=== PATIENT | female | born 1990 | race Caucasian/White ===

== ENCOUNTER 2025-07-28 09:12 | Emergency (ER) | payer MEDICAID ==
[~2025-07-28] VITALS: Ht 162.6 cm; Wt 65.9 kg
[2025-07-28 09:13] VITALS: TEMP 96.8
--- NOTE | 2025-07-28 09:31 | Physician Documentation ---
History of Present Illness ~ Chief Complaint: Back Pain Stated Complaint: BACK PAIN Time Seen by MD: 09:23 HPI Otherwise healthy 34-year-old female who presents to the emergency department for evaluation of bilateral lower back pain with mild radicular symptoms. Reports injury happened two months ago while working out. He has had waxing and waning symptoms has been unresolved. Initially sought urgent care has had no imaging. No prior history of the same. No loss of bowel or bladder. No saddle paresthesias. Noted antalgic gait. Medication Reconciliation Allergies: Coded Allergies: No Known Allergies (Unverified , 07/28/25) Scheduled Ibuprofen* (Motrin*), 1 TAB PO Q8H Prednisone* (Prednisone*), 2 TAB PO DAILY Tizanidine Hcl (Zanaflex), 1 TAB PO Q8H Review of Systems All Other Systems at this time: Reviewed and Negative Constitutional: Reports: see HPI; Denies: fever Physical Exam Physical Exam Vital Signs: RN Vital Signs have been reviewed: Yes, Temperature: 96.8, Source: Temporal, Heart Rate: 88, Respiratory Rate: 20, BP: 110/70, Pulse Oximetry: 99, Weight: 65.910 Oxygen Flow Rate: 0 General Appearance: alert, WD/WN, moderate distress EENT: PERRL/EOMI Neck: non-tender Respiratory: lungs clear Chest: accessory muscle use Cardiovascular: normal peripheral pulses Gastrointestinal: normal palpation Extremities: pain with movement, tenderness, other (Bilateral paraspinous lumbar discomfort) Neurologic: oriented x4, pad tufter II-XII nml as tested Psychiatric: normal mood/affect Skin: normal color, warm/dry Progress Results/Orders Results/Orders Orders - JAKOB ANGELES Lumbar Spine Limited (07/28/25 ) Completed Orders - JAKOB ANGELES Diazepam Tablet (Valium Tablet) (07/28/25 09:30) Ketorolac Trometh 15mg/Ml Vial (Toradol (07/28/25 09:30) Prednisone Tablet (Prednisone Tablet) (07/28/25 09:30) Lumbar Spine Limited (07/28/25 ) Medications Received in ER Medications (Trade) Dose Ordered Sig/Daysi Route PRN Reason Start Time Stop Time Status Last Admin Dose Admin (Valium tablet) 10 mg ONCE ONCE PO 07/28/25 09:30 07/28/25 09:35 DC 07/28/25 09:46 10 MG (Toradol injection) 15 mg ONCE ONCE IM 07/28/25 09:30 07/28/25 09:35 DC 07/28/25 09:47 15 MG (predniSONE tablet) 40 mg ONCE ONCE PO 07/28/25 09:30 07/28/25 09:35 DC 07/28/25 09:45 40 MG Vital Signs 07/28/25 07/28/25 07/28/25 07/28/25 09:13 09:27 09:27 09:46 Temp 96.8 Pulse 88 76 Resp 20 18 16 18 B/P (MAP) 110/70 103/72 (82) Pulse Ox 99 99 O2 Flow Rate 0 0 07/28/25 07/28/25 09:47 10:17 Resp 19 16 Medical Decision Making Additional information obtaine: N/A Findings Examination history warrants x-ray imaging to evaluate for pathologies such as spondylolysis, spondylolisthesis or other unforeseen etiologies. For abortive pain management patient will receive Toradol, Valium p.o. and prednisone burst. She will be reassessed. Presents grossly neurologically intact without focal neuro deficits. Patient reports moderate relief with the additional therapy. X-ray imaging reviewed by and reported by radiologist. There is L5-S1 facet arthropathy that is likely causing the patient's discomfort. She will be discharged without clinical suspicion for cauda equina syndrome, diskitis or epidural abscess area she will be asked to continue with prednisone burst for five days, tizanidine muscle relaxant ibuprofen. Safely discharged grossly neur ologically intact without focal neuro deficits. Differential Dx:Considerations: Musculoskeletal pain, Other (Epidural abscess, diskitis, cauda equina, spondylolisthesis, spondylolysis) Departure Disposition: HOME / SELF CARE / HOMELESS Impression: Primary Impression: Low back pain Qualified Codes: M54.42 - Lumbago with sciatica, left side; M54.41 - Lumbago with sciatica, right side Condition: Improved Discharge Instructions: Acute Back Pain, Adult Additional Instructions: Please begin medications as directed. Please advance her activity slowly and follow up with the primary care physician for consideration of physical therapy referral. Please return to the emergency department if symptoms worsen. Thank you for visiting [facility]. Referrals: NO PRIMARY CARE PROVIDER (PCP) Prescriptions Ibuprofen* (Motrin*) 400 Mg Tablet 1 TAB PO Q8H for pain or fever for 10 Days, #30 TAB Prov: JAKOB ANGELES 07/28/25 Prednisone* (Prednisone*) 20 Mg Tablet 2 TAB PO DAILY, #10 TAB Prov: JAKOB ANGELES 07/28/25 Tizanidine Hcl (ZANAFLEX) 4 Mg Tablet 1 TAB PO Q8H for 30 Days, #30 TAB 0 Refills Prov: JAKOB ANGELES 07/28/25 Education Educated: Patient Educated regarding: diagnosis, treatment, prognosis, need for follow up Signature Jemima Signature: . Attestation: . JAKOB ANGELES Jul 28, 2025 09:31
[2025-07-28] MEDS: ketorolac trometh 15mg/ml vial 15 MG/ML ML IM ONE (09:47)
--- NOTE | 2025-07-28 10:06 | RADIOLOGY REPORT ---
INDICATION: LB Radicular pain x 2 months COMPARISON: None TECHNIQUE: 3 views of the lumbar spine were obtained. FINDINGS: The lumbar vertebral alignment is normal. There is leftward deviation of the lumbar spine measuring L2-3. The intervertebral disc spaces are well-maintained. There is facet arthropathy at L4-L5 and L5-S1. No acute fracture, vertebral compression deformity or aggressive osseous lesions. The paravertebral soft tissues are grossly unremarkable. IMPRESSION: 1. No acute fracture.
[2025-07-28] MEDS ORDERED: IBUP-1984 PO (10:22)
[2025-07-28] MEDS ORDERED: PRED20TA PO (10:22)
[2025-07-28] MEDS ORDERED: TIZA4TAB11 PO (10:22)
[2025-07-28 10:35] VITALS: BP 111/64; PULSE 75; RESP 16; O2SAT 100
== END 2025-07-28 11:01 | disposition home or self-care (01) ==
LOC: ER 09:13
DX: M54.50 Low back pain, unspecified (principal); Z79.899 Other long term (current) drug therapy
CPT/HCPCS: 72100; 96372; 99283; J1885; J7512